=== PATIENT | male | born 1985 | race Caucasian/White ===

== ENCOUNTER 2016-08-06 19:21 | Emergency (ER) | payer OTHER ==
[~2016-08-06] VITALS: Ht 182.9 cm; Wt 70.5 kg
[2016-08-06 19:25] VITALS: Ht 182.9 cm; Wt 70.5 kg
[2016-08-06] MEDS ORDERED: NAPR-260 PO (20:09)
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
== END 2016-08-06 20:40 | disposition home or self-care (01) ==
LOC: FTE 19:21
DX: M54.5 Low back pain (principal); Z87.891 Personal history of nicotine dependence
CPT/HCPCS: 99283